=== PATIENT | male | born 1965 | race Caucasian/White ===

== ENCOUNTER 2018-05-04 00:41 | Inpatient (IN) | END 2018-05-06 13:00 | disposition home or self-care (01) | DRG 313 ==

== ENCOUNTER 2019-08-12 19:46 | Emergency (ER) | payer OTHER ==
[~2019-08-12] VITALS: Ht 172.7 cm; Wt 92.2 kg
[~2019-08-12 19:46] MED LIST: DOXY-214 PO; HYDR-3980 PO; HYDR-4011 PO; IBUP800T48 PO; METO-319 PO; OMEG-157 PO; OMEP40CA38 PO
[2019-08-12 19:53] VITALS: Ht 172.7 cm; Wt 92.2 kg
[2019-08-12] MEDS ORDERED: ONDANSETRON (ODT) 4 MG TAB ODT STA (20:35)
[2019-08-12] MEDS ORDERED: morphine 2 MG INJ IV STA (20:45)
[2019-08-12] MEDS ORDERED: ONDANSETRON 4 MG INJ IV STA (20:45)
[2019-08-12] MEDS ORDERED: HYDROCODONE/APAP (10/325) TAB PO ONE (21:00)
[2019-08-12] MEDS ORDERED: SOD CHLORIDE 0.9% 1,000 ML IV ONE (21:00)
[2019-08-12 23:17] VITALS: BP 158/99; PULSE 90; RESP 18
== END 2019-08-12 23:31 | disposition home or self-care (01) ==
LOC: FTE 19:46
DX: N45.2 Orchitis (principal)
CPT/HCPCS: 74176; 76870; 80053; 81001; 85025; 87086; 96374; 96375; J2270; J2405; J7030; Z7502; Z7610